=== PATIENT | male | born 1980 | race Caucasian/White ===

== ENCOUNTER 2017-02-08 17:39 | Emergency (ER) | payer BC ==
--- NOTE | 2017-02-08 18:41 | ED ---
Lower Extremity Injury HPI - General Chief Complaint: Extremity Injury, Lower Stated Complaint: CRUSHING INJURY, RT BIG TOE Time Seen by Provider: 02/08/17 18:33 Source: patient, RN notes reviewed Mode of arrival: ambulatory Limitations: no limitations - History of Present Illness Initial Comments: This is a 36-year-old male who presents to the emergency department after dropping a desk on his right great toe. He states that the desk weighed in excess of 100 pounds. Patient states she was at work when the injury occurred. Patient complaining of throbbing pain to the left great toe. Patient is complaining of pain with movement and palpation patient denies any other injuries. No paresthesias. No proximal injuries. Patient is able to ambulate. Patient denies any significant past medical history. Patient did not take any analgesics prior to arrival. MD Complaint: foot injury - Related Data Home Medications Medication Instructions Recorded Confirmed No Known Home Medications [No 02/08/17 02/08/17 Known Home Medications] Allergies Allergy/AdvReac Type Severity Reaction Status Date / Time No Known Allergies Allergy Verified 02/08/17 18:31 Review of Systems ROS Statement: Those systems with pertinent positive or pertinent negative responses have been documented in the HPI. ROS Other: All systems not noted in ROS Statement are negative. Past Medical History Past Medical History: No Reported History History of Any Multi-Drug Resistant Organisms: None Reported Past Surgical History: No Surgical Hx Reported Past Psychological History: No Psychological Hx Reported Smoking Status: Never smoker Past Alcohol Use History: None Reported Past Drug Use History: Marijuana General Exam Limitations: no limitations General appearance: alert, in no apparent distress Head exam: Present: atraumatic, normocephalic, normal inspection Eye exam: Present: normal appearance, EOMI. Absent: scleral icterus, conjunctival injection, periorbital swelling ENT exam: Present: normal exam, mucous membranes moist Neck exam: Present: normal inspection Respiratory exam: Absent: respiratory distress GI/Abdominal exam: Absent: distended Extremities exam: Present: normal inspection, full ROM, normal capillary refill. Absent: tenderness, pedal edema, joint swelling, calf tenderness Right Knee exam: Present: normal inspection, full ROM Lower Leg exam: Present: normal inspection, abrasion. Absent: tenderness Ankle exam: Present: full ROM. Absent: tenderness Foot/Toe exam: Present: full ROM, tenderness (Right great toe, dorsum), swelling , ecchymosis. Absent: abrasion, laceration, deformity Neurovascular tendon exam: Present: no vascular compromise. Absent: pulse deficit, abnormal cap refill, motor deficit, sensory deficit, tendon deficit, extremity cold to touch, pallor Gait: antalgic (Mild) Back exam: Present: normal inspection Neurological exam: Present: alert, oriented X3, CN II-XII intact Psychiatric exam: Present: normal affect, normal mood Skin exam: Present: warm, dry, intact, normal color. Absent: rash Course Vital Signs 02/08/17 18:26 Temperature 98.5 F Pulse Rate 77 Respiratory 16 Rate Blood Pressure 169/99 O2 Sat by Pulse 99 Oximetry Medical Decision Making - Medical Decision Making Patient advised to follow-up with the occupational medicine clinic as directed. Return parameters discussed. Care is discussed. Patient educated on injury care and follow-up. Patient should follow-up with the occupational medicine clinic. Patient educated on RICE. - Radiology Data Radiology results: report reviewed, image reviewed Interpreted by me: No evidence of acute pathology as read by me. Awaiting radiology interpretation. Disposition Clinical Impression: Contusion of right great toe without damage to nail, initial encounter Disposition: HOME SELF-CARE Condition: Good Instructions: Foot Contusion (ED) Additional Instructions: Return to the ER at once if the symptoms worsen or problems or difficulties arise. Apply ice 20 minutes on and off and elevate as much as possible. Follow -up with the occupational medicine clinic on Saturday. Referrals: Claudio Berrios DO [STAFF PHYSICIAN] - 02/11/17 Time of Disposition: 18:54
[2017-02-08 19:04] VITALS: BP 128/84; PULSE 74; RESP 20; TEMP 97.2
--- NOTE | 2017-02-08 19:07 | XR ---
EXAMINATION TYPE: XR foot complete RT DATE OF EXAM: 02/08/2017 6:52 PM COMPARISON: NONE HISTORY: Foot pain TECHNIQUE: 3 views FINDINGS: Metatarsals are intact. I see no fracture nor dislocation. There are no erosions. IMPRESSION: Negative right foot exam.
== END 2017-02-08 19:14 | disposition home or self-care (01) ==
LOC: EC 17:39
DX: S90.111A Contusion of right great toe without damage to nail, initial encounter (principal); W20.8XXA Other cause of strike by thrown, projected or falling object, initial encounter
CPT/HCPCS: 99283

== ENCOUNTER 2018-05-29 05:10 | Emergency (ER) | payer BC ==
[2018-05-29 05:33] VITALS: TEMP 99.6
[2018-05-29] MEDS ORDERED: KETOROLAC 60 MG/2 ML VIAL IM STA (06:47)
--- NOTE | 2018-05-29 07:11 | ED ---
General Adult HPI - General Chief complaint: Back Pain/Injury Stated complaint: All Over Pain Time Seen by Provider: 05/29/18 06:34 Source: patient, RN notes reviewed Mode of arrival: ambulatory Limitations: no limitations - History of Present Illness Initial comments: Patient 38-year-old male presented to the emergency room today with a chief complaint of bilateral hand pain, and back pain. Patient states that he's had hand pain off and on over the last year. Also admits some pain down to the right foot that is been ongoing now for several months. Patient states that yesterday after work came home took a nap he woke up he was having increased back pain. He states he does have physical job. Denies any specific injury or trauma to the area. Patient states pain is worse with movements. Denies any bowel or bladder incontinence retention. Denies any saddle anesthesia. Patient states he did try a Percocet yesterday when he was at work for the symptoms. He states this is not prescribed to him. Patient denies any other complaints at this time. Patient does admit is not have a family Dr. Galeana so he came here to the emergency room. Patient denies any recent fever, chills, shortness of breath, chest pain, abdominal pain, nausea or vomiting, dysuria or hematuria, constipation or diarrhea, visual changes, or any other complaints. - Related Data Previous Rx's Medication Instructions Recorded Cyclobenzaprine [Flexeril] 10 mg PO TID #20 tab 05/29/18 Ibuprofen [Motrin] 600 mg PO Q6HR PRN #40 day 05/29/18 Allergies Allergy/AdvReac Type Severity Reaction Status Date / Time No Known Allergies Allergy Verified 05/29/18 05:33 Review of Systems ROS Statement: Those systems with pertinent positive or pertinent negative responses have been documented in the HPI. ROS Other: All systems not noted in ROS Statement are negative. Past Medical History Past Medical History: No Reported History History of Any Multi-Drug Resistant Organisms: None Reported Past Surgical History: No Surgical Hx Reported Past Psychological History: No Psychological Hx Reported Smoking Status: Former smoker Past Alcohol Use History: None Reported Past Drug Use History: Marijuana General Exam - General Exam Comments Initial Comments: General: The patient is awake and alert, in no distress, and does not appear acutely ill. Eye: Pupils are equal, round and reactive to light, extra-ocular movements are intact. No nystagmus. There is normal conjunctiva bilaterally. No signs of icterus. Ears, nose, mouth and throat: There are moist mucous membranes and no oral lesions. Neck: The neck is supple, there is no tenderness or JVD. Cardiovascular: There is a regular rate and rhythm. No murmur, rub or gallop is appreciated. Respiratory: Lungs are clear to auscultation, respirations are non-labored, breath sounds are equal. No wheezes, stridor, rales, or rhonchi. Gastrointestinal: Soft, non-distended, non-tender abdomen without masses or organomegaly noted. There is no rebound or guarding present. No CVA tenderness. Musculoskeletal: Normal ROM. No specific tenderness over cervical, thoracic or lumbar spine. No step-off deformity. Mild tenderness paravertebrally lower lumbar spine both on left right. Patient reproduced with rotation to left and right Strength 5/5. Sensation intact. Pulses equal bilaterally 2+. Neurological: A&O x 3. CN II-XII intact, There are no obvious motor or sensory deficits. Coordination appears grossly intact. Speech is normal. Skin: Skin is warm and dry and no rashes or lesions are noted. Psychiatric: Cooperative, appropriate mood & affect, normal judgment. Limitations: no limitations Course Vital Signs 05/29/18 05/29/18 05/29/18 05:25 06:45 07:35 Temperature 99.6 F Pulse Rate 95 84 87 Respiratory 20 17 18 Rate Blood Pressure 181/106 167/104 155/95 O2 Sat by Pulse 99 95 97 Oximetry Medical Decision Making - Medical Decision Making 38-year-old male presenting for low back pain. Werner to chronic hand and foot pain. States pain worse with movement of the lower back. Denies any injury or trauma. No tenderness midline. No bowel or bladder incontinence retention. No saddle anesthesia. Patient's blood pressure mildly elevated at triage. States he's had elevated blood pressure in the past is seeking follow-up with a family doctor. Patient was given Toradol here in emergency room for his back pain which is reproduced with movements. He does admit to improvement. Patient does not have a ride home. We will give him a muscle relaxer prescription to go home with to use as is felt that his pain is musculoskeletal at this time. He is advised to use warm compresses and hot shower. He states that these have helped overnight. Patient is advised follow-up family doctor for elevated blood pressure along with his low back pain and chronic hand and foot pains. Advised return for any other concerns. Disposition Clinical Impression: Acute low back pain, Paresthesia, Elevated blood pressure reading Disposition: HOME SELF-CARE Condition: Good Instructions: Acute Low Back Pain (ED) Additional Instructions: Please use medication as discussed. Please follow-up with family doctor in the next 2 days. Please return to emergency room if the symptoms increase or worsen or for any other concerns. Prescriptions: Cyclobenzaprine [Flexeril] 10 mg PO TID #20 tab Ibuprofen [Motrin] 600 mg PO Q6HR PRN #40 day PRN Reason: Pain Is patient prescribed a controlled substance at d/c from ED?: No Referrals: None,Stated [Primary Care Provider] - 1-2 days Aydee Hillman MD [STAFF PHYSICIAN] - 1-2 days Time of Disposition: 07:50
[2018-05-29 07:36] VITALS: PULSE 87; RESP 18
[2018-05-29] MEDS ORDERED: CYCLOBENZAPRINE 10MG STARTER 3 TAB BTL PO STA (07:52)
[2018-05-29 08:08] VITALS: BP 146/87
== END 2018-05-29 08:08 | disposition home or self-care (01) ==
LOC: EC 05:10
DX: M54.5 Low back pain (principal); R20.2 Paresthesia of skin; R03.0 Elevated blood-pressure reading, without diagnosis of hypertension; M79.643 Pain in unspecified hand; M79.671 Pain in right foot; G89.29 Other chronic pain; Z87.891 Personal history of nicotine dependence
CPT/HCPCS: 99283

== ENCOUNTER 2022-01-16 06:26 | Day surgery (SDC) | payer OTHER ==
[2022-01-12 14:51] VITALS: BMI 23.7
[~2022-01-16 06:26] MED LIST: ACETAMINOPHEN TAB 500 MG TAB PO PRN; DEXAMETHASONE SOD PHOSPHATE 4 MG/ML 1 ML VIAL IV ONE; HEPARIN SODIUM,PORCINE/PF 5,000 UNIT/0.5 ML SYRINGE SQ PRN; LIDOCAINE 1% (10MG/ML) FOR IV START INTRADERMA PRN; MIDAZOLAM 2 MG/2 ML VIAL IV PRN; ONDANSETRON 4 MG/2 ML VIAL IVP ONE; SCOPOLAMINE 1 MG/72 HR PATCH TRANSDERM ONE
[2022-01-16 06:45] VITALS: RESP 16
[2022-01-16] MEDS ORDERED: METOCLOPRAMIDE 5 MG/ML 2 ML VIAL IVP PRN (07:00)
[2022-01-16] MEDS ORDERED: HYDROmorphone 0.5 MG/0.5 ML SYRINGE IVP PRN (07:00)
[2022-01-16] MEDS ORDERED: fentaNYL (PF) 50 MCG/ML 2 ML AMP IVP PRN (07:00)
[2022-01-16] MEDS ORDERED: MIDAZOLAM 2 MG/2 ML VIAL IVP ONE (07:05)
[2022-01-16] MEDS ORDERED: fentaNYL (PF) 50 MCG/ML 2 ML AMP IVP ONE (07:07)
[2022-01-16] MEDS ORDERED: diphenhydrAMINE 50 MG/ML 1 ML VIAL IVP ONE (07:10)
[2022-01-16] MEDS ORDERED: diphenhydrAMINE 50 MG/ML 1 ML VIAL ONE (07:17)
[2022-01-16] MEDS: LACTATED RINGERS 1,000 ML IV SCH ×2 (07:26→09:28)
[2022-01-16] MEDS ORDERED: LIDOCAINE 1% INJ 10MG/ML (20 ML MDV) ONE (07:50)
[2022-01-16] MEDS ORDERED: SODIUM CHLORIDE 0.9% (PF) 10 ML VIAL ONE (07:50)
[2022-01-16] MEDS ORDERED: MIDAZOLAM 2 MG/2 ML VIAL ONE (07:50)
[2022-01-16] MEDS ORDERED: KETOROLAC 15 MG/ML 1 ML VIAL ONE (07:50)
[2022-01-16] MEDS ORDERED: SUCCINYLCHOLINE CHLORIDE 100 MG/5 ML SYR IV ONE (07:50)
[2022-01-16] MEDS ORDERED: ROCURONIUM 10 MG/ML (5 ML VIAL) IV ONE (07:50)
[2022-01-16] MEDS ORDERED: ROPIVACAINE 5 MG/ML 30 ML VIAL ONE (07:50)
[2022-01-16] MEDS ORDERED: PHENYLEPHRINE-0.9% NACL SYG 1,000 MCG/10 ML SYRINGE ONE (07:50)
[2022-01-16] MEDS ORDERED: fentaNYL (PF) 50 MCG/ML 2 ML AMP ONE (07:50)
[2022-01-16] MEDS ORDERED: GLYCOPYRROLATE 0.2 MG/ML 2 ML VIAL ONE (07:50)
[2022-01-16] MEDS ORDERED: KETAMINE 10 MG/ML 20 ML VIAL ONE (07:50)
[2022-01-16] MEDS ORDERED: PROPOFOL 10 MG/ML 20 ML VIAL IV ONE (07:50)
[2022-01-16] MEDS ORDERED: NEOSTIGMINE 1 MG/ML 10 ML VIAL ONE (07:50)
--- NOTE | 2022-01-16 07:58 | P.GSHP ---
History of Present Illness H&P Date: 01/16/22 Chief Complaint: Left inguinal hernia recurrent Is a 41-year-old male who's developed a recurrent left inguinal hernia. Patient presents today for laparoscopic robotic system repair. Past Medical History Past Medical History: CVA/TIA, Hyperlipidemia, Hypertension, Osteoarthritis (OA), Skin Disorder Additional Past Medical History / Comment(s): possible TIA in past-no residual effect, psoriasis History of Any Multi-Drug Resistant Organisms: None Reported Past Surgical History: Appendectomy Past Anesthesia/Blood Transfusion Reactions: No Reported Reaction Smoking Status: Former smoker Medications and Allergies Home Medications Medication Instructions Recorded Confirmed Type Losartan/Hydrochlorothiazide 1 tab PO DAILY 01/12/22 01/16/22 History [Losartan-Hctz 100-25 mg Tab] Atorvastatin [Lipitor] 10 mg PO DAILY 01/16/22 01/16/22 History Allergies Allergy/AdvReac Type Severity Reaction Status Date / Time No Known Allergies Allergy Verified 01/16/22 06:40 Surgical - Exam Vital Signs Temp Pulse Resp BP Pulse Ox 97.8 F 62 16 157/93 100 01/16/22 06:44 01/16/22 06:44 01/16/22 06:44 01/16/22 06:44 01/16/22 06:44 - General well developed, well nourished, no distress - Eyes PERRL - ENT normal pinna - Neck no masses - Respiratory normal expansion - Cardiovascular Rhythm: regular - Abdomen Recurrent left inguinal hernia Abdomen: soft, non tender Assessment and Plan Assessment: Recurrent left internal hernia. We'll perform laparoscopic robotic-assisted repair.
[2022-01-16] MEDS ORDERED: BUPIVACAINE (PF) 0.25% 30 ML VIAL SQ ONE (08:10)
--- NOTE | 2022-01-16 08:59 | P.OP ---
Date of Procedure: 01/16/22 Preoperative Diagnosis: Recurrent left inguinal hernia Postoperative Diagnosis: Bilateral inguinal hernia Procedure(s) Performed: Transversus abdominis plane block Laparoscopic robotic repair of recurrent left internal hernia, right inguinal hernia Bilateral cord lipoma Anesthesia: NATHALY Surgeon: Phil Lewis Estimated Blood Loss (ml): 5 Pathology: other (Bilateral cord lipoma) Condition: stable Disposition: PACU Description of Procedure: The patient's placed on the operating table in the supine position. The patient received general anesthesia. The patient's abdomen was prepped and draped in usual sterile fashion. The skin was anesthetized 1% local Xylocaine at the incision sites. Using an 11 blade a skin incision was made at the umbilicus. The fascia was grasped with a [place] and then the peritoneal cavity was entered with the Veress needle. Position of the Veress needle was confirmed with a positive drop test. After adequate insufflation a 5 mm trocar was placed into the peritoneal cavity. The Laparoscope was placed the peritoneal cavity. A four-quadrant transverse processes abdominal plain block was performed using 1% local Xylocaine. And a robotic 8 mm trocar was placed in the right lateral position and then another 8 mm robotic trochars placed in the left lateral position. The original 5 mm trocar was exchanged for a 12 mm trocar. The patient was placed in reverse Trendelenburg and then the patient was docked to the robot. Next the peritoneum over top of the right inguinal hernia was incised and then using blunt and sharp dissection and electrocautery the hernia sac was dissected free from the floor of the inguinal canal. The cord lipoma was dissected free and sent to pathology. The hernia sac was completely reduced into the peritoneal cavity. And then using the Pro inspector rubber stamp die mesh the hernia was repaired. The peritoneum was then sutured with 20V lock suture. Next the peritoneum over top of the left recurrent inguinal hernia was incised and then using blunt and sharp dissection and electrocautery the hernia sac was dissected free from the floor of the inguinal canal. The cord lipoma was dissected free and sent to pathology. The hernia sac was completely reduced into the peritoneal cavity. And then using the Pro inspector rubber stamp die mesh the hernia was repaired. The peritoneum was then sutured with 20V lock suture. The patient was then undocked the robot. The needle was withdrawn from the peritoneal cavity. The umbilical trocar site was closed with 0 Ethibond suture. The skin was closed interrupted 3-0 Monocryl suture. Dermabond dressing was applied. Patient was sent to recovery in stable condition.
[2022-01-16 09:00] VITALS: TEMP 97.6
--- NOTE | 2022-01-16 09:42 | P.ANPRN ---
Procedure Note - Anesthesia - Nerve Block Performed Bilateral Erector Spinae Single Time Out Performed: Yes (705) Date of Procedure: 01/16/22 Procedure Start Time: 07:06 Procedure Stop Time: 07:12 Location of Patient: PreOp Indication: Acute Post-Operative Pain, Requested by Surgeon Specifically requested for management of pain by : Phil Lewis Sedation Type: Sedate with meaningful contact maintained Preparation: Sterile Prep, Sterile Dressing Position: Supine Catheter: None Needle Types: [place] Needle Gauge: 21 Ultrasound used to visualize needle placement: Yes Ultrasound used to observe medication spread: Yes Injectate: 0.5% Ropivacaine (see comment for volume) (15cc + 15cc nacl pf.) Blood Aspirated: No Pain Paresthesia on Injection Noted: No Resistance on Injection: Normal Image Stored and Saved: Yes Events: Uneventful and Well Tolerated
[2022-01-16] MEDS ORDERED: oxyCODONE-APAP 5-325MG 1 EACH TAB ONE (10:08)
[2022-01-16 10:14] VITALS: BP 160/95; PULSE 76
[2022-01-16] MEDS ORDERED: IBUPROFEN 200 MG TAB PO ONE (11:00)
[2022-01-16] MEDS ORDERED: KETOROLAC 15 MG/ML 1 ML VIAL IVP SCH (12:00)
== END 2022-01-16 11:17 | disposition home or self-care (01) ==
LOC: OR 06:26
PROVIDERS: ATTEND Surgery
DX: K40.91 Unilateral inguinal hernia, without obstruction or gangrene, recurrent (principal); K40.90 Unilateral inguinal hernia, without obstruction or gangrene, not specified as recurrent; D17.6 Benign lipomatous neoplasm of spermatic cord; E78.5 Hyperlipidemia, unspecified; I10 Essential (primary) hypertension; M19.90 Unspecified osteoarthritis, unspecified site; L40.9 Psoriasis, unspecified; Z86.73 Personal history of transient ischemic attack (TIA), and cerebral infarction without residual deficits; Z87.891 Personal history of nicotine dependence; Z90.49 Acquired absence of other specified parts of digestive tract; Z79.899 Other long term (current) drug therapy; Z97.2 Presence of dental prosthetic device (complete) (partial)
CPT/HCPCS: 49650; 49651; S2900; 64999; 88304